=== PATIENT | female | born 1975 | race Caucasian/White ===

== ENCOUNTER 2021-11-04 21:29 | Emergency (ER) | payer OTHER ==
[~2021-11-04] VITALS: Ht 165.1 cm; Wt 56.7 kg
[2021-11-04 21:36] VITALS: BP 192/122
[2021-11-04] MEDS ORDERED: TRAMADOL HCL 50 MG TABLET PO ONE (22:30)
[2021-11-04] MEDS ORDERED: TRAMADOL HCL 50 MG TABLET ONE (22:33)
--- NOTE | 2021-11-04 22:40 | NUR ---
Patient discharged to home in stable condition. Written and verbal after care instructions given. Patient verbalizes understanding of instruction.
== END 2021-11-04 22:59 | disposition home or self-care (01) ==
LOC: ER 21:31
DX: G89.29 Other chronic pain (principal); M54.9 Dorsalgia, unspecified; I10 Essential (primary) hypertension